=== PATIENT | male | born 1960 | race Caucasian/White ===

== ENCOUNTER → 2020-05-26 | Outpatient (CLI) | payer SELFPAY | END | disposition home or self-care (01) | LOC: RESCLI 15:02 | PROVIDERS: ATTEND Internal Medicine | DX: M19.032 Primary osteoarthritis, left wrist (principal); M19.031 Primary osteoarthritis, right wrist; M47.817 Spondylosis without myelopathy or radiculopathy, lumbosacral region; N52.9 Male erectile dysfunction, unspecified; I25.2 Old myocardial infarction; M19.90 Unspecified osteoarthritis, unspecified site; M17.0 Bilateral primary osteoarthritis of knee; M25.761 Osteophyte, right knee; M25.762 Osteophyte, left knee; G89.29 Other chronic pain; Z76.89 Persons encountering health services in other specified circumstances; Z79.899 Other long term (current) drug therapy; Z87.891 Personal history of nicotine dependence; Z88.0 Allergy status to penicillin ==

== ENCOUNTER → 2020-05-27 | Outpatient (CLI) | payer SELFPAY ==
[2020-05-27 11:54] LABS: BASO % 0.5 % (0.0-1.0); EOS # 0.3 10*3/uL (0.0-0.4); EOS % 3.5 % (1.0-4.0); HEMATOCRIT 50.5 % (42.0-52.0); LYMPH # 1.9 10*3/uL (1.3-4.4); LYMPH % 23.4 % (27.0-41.0); MEAN CELL VOLUME 88.4 fl (80.0-94.0); MEAN CORPUSCULAR HGB 29.1 pg (27.0-31.0); MEAN CORPUSCULAR HGB CONC 32.9 g/dl (33.0-37.0); MEAN PLATELET VOLUME 10.5 fl (9.6-12.3); MONO # 0.7 10*3/uL (0.1-1.0); MONO % 7.8 % (3.0-9.0); NEUT # 5.4 10*3/uL (2.3-7.9); NEUT % 64.6 % (47.0-73.0); PLATELET COUNT AUTOMATED 328 10*3/uL (130-400); RED BLOOD COUNT 5.71 10*6/uL (4.50-5.90); RED CELL DISTRI WIDTH 13.5 % (0-14.5); WHITE BLOOD COUNT 8.3 10*3/uL (4.8-10.8)
[2020-05-27 12:15] LABS: CHLORIDE 111 mmol/L (98-107); POTASSIUM 3.9 mmol/L (3.5-5.1); SODIUM 140 mmol/L (136-145)
[2020-05-27 12:31] LABS: ALBUMIN 4.1 gm/dl (3.1-4.5); ALKALINE PHOSPHATASE 56 U/L (45-117); BUN 15 mg/dl (7-24); CHOLESTEROL 178 mg/dL (<200); HDL CHOLESTEROL 48 mg/dl (40-60); LDL CHOLESTEROL 108 mg/dL (9-159); SGOT/AST 24 IU/L (3-35); SGPT/ALT 38 U/L (12-78); TOTAL PROTEIN 7.9 gm/dL (6.4-8.2); TRIGLYCERIDES 109 mg/dl (<150); VLDL CHOLESTEROL 22 mg/dL (6-40)
== END | disposition home or self-care (01) ==
LOC: LAB 10:51
PROVIDERS: ATTEND Internal Medicine
DX: M25.561 Pain in right knee (principal); M25.562 Pain in left knee; M25.532 Pain in left wrist; M25.531 Pain in right wrist; N52.9 Male erectile dysfunction, unspecified; Z76.89 Persons encountering health services in other specified circumstances; Z12.5 Encounter for screening for malignant neoplasm of prostate

== ENCOUNTER → 2020-07-03 | Outpatient (CLI) | payer SELFPAY | END | disposition home or self-care (01) | LOC: RESCLI 07:59 | PROVIDERS: ATTEND Internal Medicine Nephrology | DX: G89.29 Other chronic pain (principal); M25.561 Pain in right knee; M25.562 Pain in left knee; N52.9 Male erectile dysfunction, unspecified; E11.9 Type 2 diabetes mellitus without complications; M54.5 Low back pain; M19.90 Unspecified osteoarthritis, unspecified site; Z88.0 Allergy status to penicillin; Z79.899 Other long term (current) drug therapy ==

== ENCOUNTER → 2020-08-22 | Outpatient (CLI) | payer SELFPAY ==
[2020-08-23 09:07] LABS: CREATININE,URINE 77.8 mg/dL (Not Estab.)
== END | disposition home or self-care (01) ==
LOC: LAB 09:13
PROVIDERS: Internal Medicine; ATTEND Internal Medicine
DX: E11.9 Type 2 diabetes mellitus without complications (principal)

== ENCOUNTER → 2020-09-08 | Outpatient (CLI) | payer SELFPAY | LOC: RESCLI 01:42 | PROVIDERS: ATTEND Internal Medicine Nephrology | DX: R05 Cough (principal); E11.9 Type 2 diabetes mellitus without complications; R39.11 Hesitancy of micturition; N52.9 Male erectile dysfunction, unspecified; M25.561 Pain in right knee; M25.562 Pain in left knee; Z79.84 Long term (current) use of oral hypoglycemic drugs; Z79.82 Long term (current) use of aspirin; Z79.899 Other long term (current) drug therapy; Z87.891 Personal history of nicotine dependence ==

== ENCOUNTER → 2021-01-28 | Outpatient (CLI) | payer SELFPAY ==
[2021-01-28 11:35] LABS: BASO # 0.1 10*3/uL (0.0-0.1); BASO % 0.6 % (0.0-1.0); EOS # 0.4 10*3/uL (0.0-0.4); EOS % 5.4 % (1.0-4.0); HEMATOCRIT 46.2 % (42.0-52.0); LYMPH # 2.6 10*3/uL (1.3-4.4); LYMPH % 32.3 % (27.0-41.0); MEAN CELL VOLUME 89.2 fl (80.0-94.0); MEAN CORPUSCULAR HGB 29.7 pg (27.0-31.0); MEAN CORPUSCULAR HGB CONC 33.3 g/dl (33.0-37.0); MEAN PLATELET VOLUME 9.8 fl (9.6-12.3); MONO # 0.8 10*3/uL (0.1-1.0); MONO % 9.8 % (3.0-9.0); NEUT # 4.2 10*3/uL (2.3-7.9); NEUT % 51.8 % (47.0-73.0); PLATELET COUNT AUTOMATED 315 10*3/uL (130-400); RED BLOOD COUNT 5.18 10*6/uL (4.50-5.90); RED CELL DISTRI WIDTH 12.9 % (0-14.5); WHITE BLOOD COUNT 8.2 10*3/uL (4.8-10.8)
[2021-01-28 12:59] LABS: ALBUMIN 4.2 gm/dl (3.1-4.5); ALKALINE PHOSPHATASE 46 U/L (45-117); BUN 15 mg/dl (7-24); CHLORIDE 106 mmol/L (98-107); CHOLESTEROL 197 mg/dL (<200); CREATININE 0.86 mg/dL (0.70-1.30); LDL CHOLESTEROL 123 mg/dL (9-159); SGOT/AST 19 IU/L (3-35); SGPT/ALT 32 U/L (12-78); SODIUM 136 mmol/L (136-145); TOTAL PROTEIN 7.9 gm/dL (6.4-8.2); TRIGLYCERIDES 150 mg/dl (<150)
[2021-01-29 10:08] LABS: CREATININE,URINE 79.4 mg/dL (Not Estab.)
== END | disposition home or self-care (01) ==
LOC: RESCLI 02:00
PROVIDERS: Internal Medicine; ATTEND Emergency Medicine
DX: Z00.00 Encounter for general adult medical examination without abnormal findings (principal); N52.9 Male erectile dysfunction, unspecified; E11.9 Type 2 diabetes mellitus without complications; M54.5 Low back pain; G89.29 Other chronic pain; M25.531 Pain in right wrist; G44.52 New daily persistent headache (NDPH); R39.11 Hesitancy of micturition; E78.5 Hyperlipidemia, unspecified; Z79.82 Long term (current) use of aspirin; Z79.84 Long term (current) use of oral hypoglycemic drugs; Z79.899 Other long term (current) drug therapy; Z87.891 Personal history of nicotine dependence

== ENCOUNTER → 2021-05-27 | Outpatient (CLI) | payer SELFPAY | END | disposition home or self-care (01) | LOC: RESCLI 00:20 | PROVIDERS: ATTEND Family Medicine | DX: E11.9 Type 2 diabetes mellitus without complications (principal); N52.9 Male erectile dysfunction, unspecified; M25.561 Pain in right knee; M25.562 Pain in left knee; M54.59 Other low back pain; R39.11 Hesitancy of micturition; R03.0 Elevated blood-pressure reading, without diagnosis of hypertension; M19.90 Unspecified osteoarthritis, unspecified site; E78.5 Hyperlipidemia, unspecified; J30.2 Other seasonal allergic rhinitis; Z79.84 Long term (current) use of oral hypoglycemic drugs; Z79.899 Other long term (current) drug therapy; Z87.891 Personal history of nicotine dependence; Z72.89 Other problems related to lifestyle; Z88.0 Allergy status to penicillin ==